=== PATIENT | male | born 1930 | race Caucasian/White ===

== ENCOUNTER 2018-09-13 12:10 | Inpatient (IN) | payer OTHER, BC ==
[2018-09-13 12:22] VITALS: BMI 24.7
--- NOTE | 2018-09-13 13:36 | PDOC ---
History of Present Illness - General Chief Complaint: Weakness Stated Complaint: WEAKNESS Time Seen by Provider: 09/13/18 13:36 History Source: Patient Exam Limitations: No Limitations - History of Present Illness Initial Comments: 09/13/18 16:13 87 year old male with PMH BPH s/p TURP, DVT presented to ED for multiple falls and feeling off balance for a week. Pt stated while walking today he felt his legs give out beneath him, bringing him to the ground on his knees. He denied head injury/LOC/vomiting. Pt reported he fell a week ago, does not remember if he had head injury. Pt denied chest pain, shortness of breath, abdominal pain, lightheadedness, nausea/vomiting/diarrhea, fever, weakness, numbness, tingling. Allergies: NKDA Past History - Past Medical History Allergies/Adverse Reactions: Allergies Allergy/AdvReac Type Severity Reaction Status Date / Time No Known Allergies Allergy Verified 09/13/18 12:22 Home Medications: Ambulatory Orders Aspirin [ASA -] 81 mg PO DAILY 08/14/14 Diazepam [Valium] 5 mg PO BID #20 tablet 08/17/14 Meloxicam 15 mg PO DAILY 09/13/18 Anemia: No Asthma: No Cancer: No Cardiac Disorders: Yes (arrhythmia) CVA: No COPD: No CHF: No Dementia: No Diabetes: No GI Disorders: No Disorders: Yes (turp) HTN: No Hypercholesterolemia: Yes Liver Disease: No Seizures: No Thyroid Disease: No Other medical history: poor mobility and balance - Surgical History Abdominal Surgery: No Appendectomy: No Cardiac Surgery: No Cholecystectomy: No Lung Surgery: No Neurologic Surgery: No Orthopedic Surgery: No - Suicide/Smoking/Psychosocial Hx Smoking Status: Yes Smoking History: Current every day smoker Have you smoked in the past 12 months: Yes Number of Cigarettes Smoked Daily: 6 Information on smoking cessation initiated: No Hx Alcohol Use: No Drug/Substance Use Hx: No Substance Use Type: None Hx Substance Use Treatment: No Review of Systems - Review of Systems Able to Perform ROS?: Yes Comments:: 09/13/18 16:12 General: admitted to generalized weakness. denied fever, chills. HEENT: denied sore throat, rhinorrhea, ear pain. Heart: denied chest pain, palpitations, syncope, diaphoresis. Respiratory: denied shortness of breath, cough, sputum production, hemoptysis. Abdomen: denied abdominal pain, nausea, vomiting, diarrhea, constipation, blood in stool. : denied dysuria, increased urinary frequency, hematuria, urinary incontinence , flank pain. Back: denied back pain. Musculoskeletal: denied joint pain, muscle pain, joint swelling. Neurological: admitted to disequilibrium. denied headache, dizziness, numbness, tingling, weakness. Skin: denied rash, laceration, abrasion. *Physical Exam - Vital Signs Last Vital Signs Temp Pulse Resp BP Pulse Ox 97.3 F L 79 17 118/60 99 09/13/18 12:19 09/13/18 12:19 09/13/18 12:19 09/13/18 12:19 09/13/18 12:19 - Physical Exam Comments: 09/13/18 16:13 Constitutional: Well-nourished, Well-developed, appearing stated age. HEENT: head is normocephalic, atraumatic. EOMI. PERRLA. no ramirez sign. no scalp hematoma. no raccoon eyes. no tenderness to palpation of bilateral facial bones. Neck: supple. Full ROM. no midline C-spine tenderness to palpation. Heart: regular rhythm. no murmurs, rubs or gallops. Lungs: wheezing to left lung. right lung clear to auscultation. speaking full sentences. Abdomen: soft, nontender. normal bowel sounds. no rebound, guarding, masses. Extremities: peripheral pulses intact. no lower extremity edema. Neurological: alert. oriented x3. CN2-12 intact. 5/5 strength all extremities. full sensation all extremities and bilateral face. no ataxia. gait not observed. Psych: awake, alert, oriented x3. follows commands. answers questions appropriately. ED Treatment Course - LABORATORY CBC & Chemistry Diagram: 09/13/18 13:46 09/13/18 13:46 Medical Decision Making - Medical Decision Making 09/13/18 14:45 87 year old male with above PMH presented to ED for multiple falls, disequilibrium. Initial Vital Signs Temp Pulse Resp BP Pulse Ox 97.3 F L 79 17 118/60 99 09/13/18 12:19 09/13/18 12:19 09/13/18 12:19 09/13/18 12:19 09/13/18 12:19 Afebrile. No tachycardia, no bradycardia. No tachypnea. No hypotension. No hypoxia on room air. EKG performed at 148: rate 61, regular rhythm, normal acis, normal intervals, no acute ST changes. CBC WBC 4.7 K/mm3 (4.0-10.0) 09/13/18 13:46 RBC 3.62 M/mm3 (4.00-5.60) L 09/13/18 13:46 Hgb 11.2 GM/dL (11.7-16.9) L 09/13/18 13:46 Hct 32.9 % (35.4-49) L D 09/13/18 13:46 MCV 90.9 fl (80-96) 09/13/18 13:46 MCH 30.8 pg (25.7-33.7) 09/13/18 13:46 MCHC 33.9 g/dl (32.0-35.9) 09/13/18 13:46 RDW 12.7 % (11.9-15.9) 09/13/18 13:46 Plt Count 195 K/MM3 (134-434) D 09/13/18 13:46 MPV 6.8 fl (7.5-11.1) L 09/13/18 13:46 Absolute Neuts (auto) 2.9 K/mm3 (1.5-8.0) 09/13/18 13:46 Neutrophils % 62.1 % (42.8-82.8) 09/13/18 13:46 Lymphocytes % 24.9 % (8-40) 09/13/18 13:46 Monocytes % 9.0 % (3.8-10.2) 09/13/18 13:46 Eosinophils % 3.4 % (0-4.5) 09/13/18 13:46 Basophils % 0.6 % (0-2.0) 09/13/18 13:46 Nucleated RBC % 0 % (0-0) 09/13/18 13:46 No leukocytosis. Mild normocytic anemia. No left shift. CMP Sodium 128 mmol/L (136-145) L 09/13/18 13:46 Potassium 4.3 mmol/L (3.5-5.1) 09/13/18 13:46 Chloride 95 mmol/L (98-107) L 09/13/18 13:46 Carbon Dioxide 27 mmol/L (21-32) 09/13/18 13:46 Anion Gap 7 MMOL/L (8-16) L 09/13/18 13:46 BUN 15.8 mg/dL (7-18) 09/13/18 13:46 Creatinine 1.1 mg/dL (0.55-1.3) 09/13/18 13:46 Est GFR (CKD-EPI)AfAm 69.59 09/13/18 13:46 Est GFR (CKD-EPI)NonAf 60.04 09/13/18 13:46 Random Glucose 85 mg/dL (74-106) 09/13/18 13:46 Calcium 8.3 mg/dL (8.5-10.1) L 09/13/18 13:46 Total Bilirubin 0.5 mg/dL (0.2-1) 09/13/18 13:46 AST 9 U/L (15-37) L 09/13/18 13:46 ALT 13 U/L (13-61) 09/13/18 13:46 Alkaline Phosphatase 55 U/L (45-117) 09/13/18 13:46 Troponin I < 0.02 ng/ml (0.00-0.05) 09/13/18 13:46 Total Protein 5.8 g/dl (6.4-8.2) L 09/13/18 13:46 Albumin 3.4 g/dl (3.4-5.0) 09/13/18 13:46 TSH 1.66 uIU/ml (0.358-3.74) 09/13/18 13:46 Hyponatremia. No BLANCO. No transaminitis. Troponin level undetectable. Labs ordered: urine sodium, UA, urine Cl, urine culture. Will consult renal when labs return. 09/13/18 15:49 CT head report: Clinical information given: history of multiple falls; dysequilibrium No intracranial hemorrhage is seen. There is no extra-axial fluid collection. No acute infarct is identified with the limitations of CT. Note is again made of focal white hypodensity within the left frontal centrum semiovale which may be on the basis of localized chronic microvascular changes versus chronic infarction. No obvious mass lesion is noted on noncontrast imaging. Involutional changes are noted with mild ventricular dilatation. The calvarium appears intact. Incidental note is made of a right ocular scleral band in place. IMPRESSION: No CT evidence of acute intracranial pathology. There has been no definite interval change in comparison to a prior CT study of 03/14/2016. Left frontal subcortical white matter hypodensity is again seen consistent with localized microvascular ischemic gliosis versus chronic infarction. Reported By: Uday Hoffman MD 09/13/18 1506 09/13/18 16:17 CXR report: Single AP view of the chest reveals a prominent heart, sclerotic unfolded aorta, possible hiatal hernia, fullness superior mediastinum, normal radha and well expanded lung gonzáles with questionable ill-defined density in the left mid lung field. Angles are sharp and the soft tissues are intact. There are degenerative changes. Correlation recommended. Follow-up suggested --CT chest 10/16/18 report: Sequential axial images were obtained from the thoracic inlet through the domes of the diaphragm following the administration of intravenous contrast material. Since a prior study dated 12/05/2014, a right upper lobe pulmonary mass within the posterior medial aspect of the lobe is reidentified. The mass has not significantly changed in size or appearance now measuring 2.4 x 1.7 x 1.7 cm. No new pulmonary masses, areas of acute consolidation or pleural effusions have developed. Minimal atelectatic changes are noted at the right lung base. Examination of the mediastinum demonstrates no evidence of mediastinal masses, fluid collections or significant lymphadenopathy. The heart is not enlarged. Evaluation of the upper abdomen demonstrates prominence of the left adrenal gland, unchanged. There is no evidence of acute abnormalities. There is no evidence of metastatic disease or acute bony abnormalities. IMPRESSION: 1. Stable right upper lobe mass since 2014. 2. No evidence of metastatic disease or acute pathology within the chest. Please see above discussion. 09/13/18 16:52 Urine Test Results Urine Color Yellow 09/13/18 15:07 Urine Appearance Clear 09/13/18 15:07 Urine pH 6.5 (5.0-8.0) D 09/13/18 15:07 Ur Specific [place] 1.004 (1.010-1.035) L 09/13/18 15:07 Urine Protein Negative (NEGATIVE) 09/13/18 15:07 Urine Glucose (UA) Negative (NEGATIVE) 09/13/18 15:07 Urine Ketones Negative (NEGATIVE) 09/13/18 15:07 Urine Blood Negative (NEGATIVE) 09/13/18 15:07 Urine Nitrite Negative (NEGATIVE) 09/13/18 15:07 Urine Bilirubin Negative (NEGATIVE) 09/13/18 15:07 Ur Leukocyte Esterase Negative (NEGATIVE) 09/13/18 15:07 Urine sodium low Urine osmol low Serum osmol low I spoke with Dr. Campbell about the patient, he recommended 100 cc/hour. Pt to be admitted for hyponatremia with multiple falls. 09/13/18 17:30 CT c-spine report: CT scan of the cervical spine without intravenous contrast Coronal and sagittal reconstruction images were obtained. Compared to prior CT scan of the cervical spine dated 03/14/2016 which There is mild retrolisthesis of C4 over C5, approximately 4 mm. There is also minimal anterolisthesis of C7 over T1. Otherwise, no gross fracture, subluxation or prevertebral soft tissue swelling is seen. No jumped facets are identified. Marked degenerative disc disease from C3 down to C7 level mainly at C4-C5 level. Bilateral uncovertebral hypertrophy moderately narrowing the foramina from C3-C4 down to C6-C7 level. Irregularity with sclerotic and cystic changes involving the dens and there is calcification of the left transverse process. Findings may be on the basis of arthritis considering the history. Visualized portion of the airway appears unremarkable. No gross enlarged lymph nodes are identified. Prominent density calcified plaques at the common carotid bifurcation, left larger than right. Correlate clinically for further evaluation. Lung windows at the thoracic inlet appear unremarkable. IMPRESSION: Grade 1 retrolisthesis of C4 over C5 and the grade 1 anterolisthesis of C7 over T1, likely degenerative. Otherwise, the alignment is satisfactory without gross evidence of a fracture or subluxation. No jumped facets are identified. No prevertebral swelling is present. Significant degenerative disc disease from C3 down to C7 level. Dense prominent calcified plaques at the common carotid bifurcation, left larger than right. Correlate clinically for further evaluation Reported By: Cristobal Humphrey MD 09/13/18 1711 *DC/Admit/Observation/Transfer Diagnosis at time of Disposition: Hyponatremia, Multiple falls - Discharge Dispostion Condition at time of disposition: Stable Decision to Admit order: Yes - Referrals Referrals: Jamal Goldberg MD [Primary Care Provider] - - Patient Instructions - Post Discharge Activity
[2018-09-13 14:03] LABS: BASO % 0.6 % (0-2.0); EOS % 3.4 % (0-4.5); HEMATOCRIT 32.9 % (35.4-49); HEMOGLOBIN 11.2 GM/dL (11.7-16.9); LYMPH % 24.9 % (8-40); MCH 30.8 pg (25.7-33.7); MCHC 33.9 g/dl (32.0-35.9); MEAN CELL VOLUME 90.9 fl (80-96); MEAN PLT VOLUME 6.8 fl (7.5-11.1); NEUT % 62.1 % (42.8-82.8); PLATELET COUNT 195 K/MM3 (134-434); RBC 3.62 M/mm3 (4.00-5.60); RDW 12.7 % (11.9-15.9); WHITE BLOOD COUNT 4.7 K/mm3 (4.0-10.0)
[2018-09-13 14:39] LABS: ALBUMIN 3.4 g/dl (3.4-5.0); ALK PHOS 55 U/L (45-117); ANION GAP 7 MMOL/L (8-16); BILIRUBIN,TOTAL 0.5 mg/dL (0.2-1); BLOOD UREA NITROGEN 15.8 mg/dL (7-18); CALCIUM 8.3 mg/dL (8.5-10.1); CHLORIDE 95 mmol/L (98-107); CO2 27 mmol/L (21-32); CREATININE 1.1 mg/dL (0.55-1.3); GLUCOSE,RANDOM 85 mg/dL (74-106); POTASSIUM 4.3 mmol/L (3.5-5.1); SGOT/AST 9 U/L (15-37); SGPT/ALT 13 U/L (13-61); SODIUM 128 mmol/L (136-145); TOT PROT 5.8 g/dl (6.4-8.2)
[2018-09-13 15:35] LABS: PH,URINE 6.5 (5.0-8.0); URINE APPEARANCE CLEAR; URINE BILIRUBIN NEGATIVE (NEGATIVE); URINE COLOR YELLOW; URINE GLUCOSE (UA) NEGATIVE (NEGATIVE); URINE KETONE NEGATIVE (NEGATIVE); URINE LEUK ESTERASE NEGATIVE (NEGATIVE); URINE NITRITE NEGATIVE (NEGATIVE); URINE PROTEIN NEGATIVE (NEGATIVE); URINE UROBILINOGEN 0.2 mg/dL (0.2-1.0)
[2018-09-13 16:27] LABS: OSMOLALITY,SERUM 264 mosm/kg (278-305)
[2018-09-13] MEDS ORDERED: SODIUM CHLORIDE 1,000 ML IV SCH ×2 (17:00→20:56)
--- NOTE | 2018-09-13 18:34 | PDOC ---
Documentation entered by Rudy Hillman SCRIBE, acting as scribe for Yulisa Agarwal MD. Yulisa Agarwal MD: This documentation has been prepared by the Rafy long Nirvannie, SCRIBE, under my direction and personally reviewed by me in its entirety. I confirm that the documentation accurately reflects all work, treatment, procedures, and medical decision making performed by me. Attending Attestation - Resident Resident Name: JanieCony - ED Attending Attestation I have performed the following: I have examined & evaluated the patient, The case was reviewed & discussed with the resident, I agree w/resident's findings & plan - HPI HPI: 09/13/18 14:41 The patient is a year old male, with a significant past medical history of HLD, cataracts, cardiac arrhythmia, BPH (s/p TURP), who presents to the emergency department with, 1 week of weakness and frequent falls. Patient notes his last fall he dropped to his knees, however, unaware of previous falls with head injury. He denies any recent chest pain or shortness of breath. Allergies: NKDA Primary Care Physician: Dr. Goldberg - Physicial Exam PE: 09/13/18 13:58 GENERAL: Awake, alert, and fully oriented, in no acute distress HEAD: No signs of trauma EYES: PERRLA, EOMI, sclera anicteric, conjunctiva clear ENT: Auricles normal inspection, hearing grossly normal, nares patent, oropharynx clear without exudates. Moist mucosa NECK: Normal ROM, supple, no lymphadenopathy, JVD, or masses LUNGS: Breath sounds equal, clear to auscultation bilaterally. No wheezes, and no crackles HEART: Regular rate and rhythm, normal S1 and S2, no murmurs, rubs or gallops ABDOMEN: Soft, nontender, normoactive bowel sounds. No guarding, no rebound. No masses EXTREMITIES: Normal range of motion, no edema. No clubbing or cyanosis. No cords, erythema, or tenderness NEUROLOGICAL: Cranial nerves II through XII grossly intact. Normal speech, normal gait. Motor and sensation intact SKIN: Warm, Dry, normal turgor, no rashes or lesions noted
--- NOTE | 2018-09-13 18:43 | HP ---
CHIEF COMPLAINT: collapsed to floor, generalized weakness PCP:Dr. Goldberg HISTORY OF PRESENT ILLNESS: Mr. Weinberg is an 87 year old male with history of BPH with TURP, no prior cardiac history who reports he has collapsed to the floor today. He denies other falls this month but has had multiple falls in the past. He denied loss of consciousness or hitting his head. He reports he has had prior head trauma in his earlier years and reports losing 30 pounds in the past 3-4 years and relates this to not eating adequately. Upon evaluation in the ER CT scan of head revealed microvascular ischemic gliosis versus chronic infarction. CT scan of spine with degenerative disc disease. lab findings notable for sodium 129, and UA with low urine osmolarity, low random sodium and chloride. Renal has been consulted in the ER. He was started in IV fluids NS at 100 cc/hr. He is being admitted for further medical evaluation/treatment. Recent Travel:denies PAST MEDICAL HISTORY: BPH TURP PAST SURGICAL HISTORY: TURP Social History: Smoking:ex smoker, quit for 43 years but resumed to smoking 3-4 years ago, smokes 6-7 cigarettes a day Alcohol:denies Drugs: denies Family History: Allergies No Known Allergies Allergy (Verified 09/13/18 12:22) HOME MEDICATIONS: Home Medications Medication Instructions Recorded Aspirin [ASA -] 81 mg PO DAILY 08/14/14 Diazepam [Valium] 5 mg PO BID #20 tablet 08/17/14 Meloxicam 15 mg PO DAILY 09/13/18 REVIEW OF SYSTEMS CONSTITUTIONAL: Absent: fever, chills, diaphoresis, generalized weakness, malaise, loss of appetite, weight change HEENT: Absent: rhinorrhea, nasal congestion, throat pain, throat swelling, difficulty swallowing, mouth swelling, ear pain, eye pain, visual changes CARDIOVASCULAR: Absent: chest pain, syncope, palpitations, irregular heart rate, lightheadedness , peripheral edema RESPIRATORY: Absent: cough, shortness of breath, dyspnea with exertion, orthopnea, wheezing, stridor, hemoptysis GASTROINTESTINAL: Absent: abdominal pain, abdominal distension, nausea, vomiting, diarrhea, constipation, melena, hematochezia GENITOURINARY: Absent: dysuria, frequency, urgency, hesitancy, hematuria, flank pain, genital pain MUSCULOSKELETAL: Absent: myalgia, arthralgia, joint swelling, back pain, neck pain SKIN: Absent: rash, itching, pallor HEMATOLOGIC/IMMUNOLOGIC: Absent: easy bleeding, easy bruising, lymphadenopathy, frequent infections ENDOCRINE: Absent: unexplained weight gain, unexplained weight loss, heat intolerance, cold intolerance NEUROLOGIC: Absent: headache, focal weakness or paresthesias, dizziness, unsteady gait, seizure, mental status changes, bladder or bowel incontinence PSYCHIATRIC: Absent: anxiety, depression, suicidal or homicidal ideation, hallucinations. PHYSICAL EXAMINATION Vital Signs - 24 hr 09/13/18 09/13/18 12:19 17:05 Temperature 97.3 F L 97.8 F Pulse Rate 79 Pulse Rate [ 68 Left Radial] Respiratory 17 19 Rate Blood Pressure 118/60 Blood Pressure 149/62 [Right Arm] O2 Sat by Pulse 99 98 Oximetry (%) GENERAL: awake, alert, and fully oriented HEAD:no head trauma EYES: pupils equal, round and reactive to light EARS, NOSE, THROAT: ears normal, nares patent NECK: neck supple no JVD LUNGS: breath sounds clear to auscultation bilaterally no wheezes no crackles no accessory muscle use HEART: regular rate and rhythm normal S1 and S2 without murmur ABDOMEN: soft, nontender, not distended, normoactive bowel sounds MUSCULOSKELETAL: normal range of motion UPPER EXTREMITIES: well-perfused LOWER EXTREMITIES: well-perfused no pitting edema no cyanosis NEUROLOGICAL: normal speech no neuro focal deficits PSYCHIATRIC: cooperative good eye contact appropriate mood SKIN: warm dry normal turgor no rashes or lesions noted normal capillary refill Laboratory Results - last 24 hr 09/13/18 09/13/18 09/13/18 13:46 13:46 15:07 WBC 4.7 RBC 3.62 L Hgb 11.2 L Hct 32.9 L D MCV 90.9 MCH 30.8 MCHC 33.9 RDW 12.7 Plt Count 195 D MPV 6.8 L Absolute Neuts (auto) 2.9 Neutrophils % 62.1 Lymphocytes % 24.9 Monocytes % 9.0 Eosinophils % 3.4 Basophils % 0.6 Nucleated RBC % 0 Sodium 128 L Potassium 4.3 Chloride 95 L Carbon Dioxide 27 Anion Gap 7 L BUN 15.8 Creatinine 1.1 Est GFR (CKD-EPI)AfAm 69.59 Est GFR (CKD-EPI)NonAf 60.04 Random Glucose 85 Serum Osmolality 264 L Calcium 8.3 L Total Bilirubin 0.5 AST 9 L ALT 13 Alkaline Phosphatase 55 Troponin I < 0.02 Total Protein 5.8 L Albumin 3.4 TSH 1.66 Urine Color Yellow Urine Appearance Clear Urine pH 6.5 D Ur Specific [place] 1.004 L Urine Protein Negative Urine Glucose (UA) Negative Urine Ketones Negative Urine Blood Negative Urine Nitrite Negative Urine Bilirubin Negative Urine Urobilinogen 0.2 Ur Leukocyte Esterase Negative Urine Osmolality Ur Random Sodium Ur Random Chloride 09/13/18 09/13/18 09/13/18 15:07 15:20 15:20 WBC RBC Hgb Hct MCV MCH MCHC RDW Plt Count MPV Absolute Neuts (auto) Neutrophils % Lymphocytes % Monocytes % Eosinophils % Basophils % Nucleated RBC % Sodium Potassium Chloride Carbon Dioxide Anion Gap BUN Creatinine Est GFR (CKD-EPI)AfAm Est GFR (CKD-EPI)NonAf Random Glucose Serum Osmolality Calcium Total Bilirubin AST ALT Alkaline Phosphatase Troponin I Total Protein Albumin TSH Urine Color Urine Appearance Urine pH Ur Specific [place] Urine Protein Urine Glucose (UA) Urine Ketones Urine Blood Urine Nitrite Urine Bilirubin Urine Urobilinogen Ur Leukocyte Esterase Urine Osmolality 138 L Ur Random Sodium 25 L Ur Random Chloride 18 L ASSESSMENT/PLAN: This is an 87 year old male with history of BPH with TURP and no prior cardiac history who reports he has collapsed to the floor today.He denied loss of consciousness or hitting his head. He was found to have hyponatremia. UA with low sodium urine osmolarity and low random sodium and chloride. Renal has been consulted. He was started in IV fluids NS at 100 cc/hr. He is being admitted for further medical evaluation/treatment. #1 Hyponatremia UA with low sodium urine osmolarity and low random sodium and chloride. Creatinine is normal. IVF NS at 100 cc/hr started - Renal Dr. Campbell consulted #2 Fall in setting of hyponatremia CT scan of head with no acute intracranial findings. Troponin normal. - continue with IV fluids NS at 100 cc/hr - physical therapy consulted #3 Weight Loss CXR with density seen in the left mid lung field. Patient is an active smoker - Will check CT scan of chest with contrast to exclude lung mass FEN IVF NS @ 100cc/hr, regular diet, monitor electrolytes DVT TEDS, SCDS, lovenox 40 mg once daily - Visit type - Emergency Visit Emergency Visit: Yes ED Registration Date: 09/13/18 Care time: The patient presented to the Emergency Department on the above date and was hospitalized for further evaluation of their emergent condition. - New Patient This patient is new to me today: Yes Date on this admission: 09/13/18 - Critical Care Critical Care patient: No
[2018-09-13] MEDS: ENOXAPARIN NA (PORCINE) 40 MG/0.4 ML DISP.SYRIN SQ SCH (18:50)
--- NOTE | 2018-09-13 20:50 | CONSULT ---
Consult Consult Specialty:: Nephrology Reason for Consultation:: hyponatremia - History of Present Illness Chief Complaint: dizziness History of Present Illness: Pt is an 87 year old male with pmhx of bph, TURP, DVT, vertigo, and anxiety who presents to the ER with dizziness for the last week. He was found to be hyponatremic and I was called to evaluate him. He says that he has had dizziness for the last 3 years. 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 He also says that he has a 40 pound weight loss over the last 3 years. He says he does not eat much and does not have much appetite. He denies dysuria or hematuria. - History Source History Provided By: Patient, Medical Record - Past Medical History Cardio/Vascular: Yes: Hyperlipdemia Renal/: Yes: BPH Psych: Yes: Anxiety, Panic Musculoskeletal: Yes: Chronic low back pain - Past Surgical History Past Surgical History: Yes: TURP - Alcohol/Substance Use Hx Alcohol Use: No Number of Drinks Daily: 2 - Smoking History Smoking history: Current every day smoker Have you smoked in the past 12 months: Yes Aproximately how many cigarettes per day: 6 Home Medications - Allergies Allergies/Adverse Reactions: Allergies Allergy/AdvReac Type Severity Reaction Status Date / Time No Known Allergies Allergy Verified 09/13/18 12:22 - Home Medications Home Medications: Ambulatory Orders Aspirin [ASA -] 81 mg PO DAILY 08/14/14 Diazepam [Valium] 5 mg PO BID #20 tablet 08/17/14 Meloxicam 15 mg PO DAILY 09/13/18 Family Disease History - Family Disease History Family History: Denies Review of Systems - Review of Systems Constitutional: reports: Loss of Appetite, Malaise, Unintentional Wgt. Loss Eyes: reports: No Symptoms HENT: reports: No Symptoms Neck: reports: No Symptoms Cardiovascular: reports: No Symptoms Respiratory: reports: No Symptoms Gastrointestinal: reports: No Symptoms Genitourinary: reports: No Symptoms Musculoskeletal: reports: Joint Pain Integumentary: reports: No Symptoms Neurological: reports: Dizziness, Unsteady Gait Endocrine: reports: No Symptoms Hematology/Lymphatic: reports: No Symptoms Psychiatric: reports: No Symptoms Physical Exam Vital Signs: Vital Signs Temperature 97.8 F 09/13/18 20:00 Pulse Rate 84 09/13/18 20:00 Respiratory Rate 21 H 06/10/19 20:00 Blood Pressure 148/89 09/13/18 20:00 O2 Sat by Pulse Oximetry (%) 98 09/13/18 20:00 Constitutional: Yes: Calm Eyes: Yes: Conjunctiva Clear HENT: Yes: Atraumatic Neck: Yes: Supple Cardiovascular: Yes: S1, S2 Respiratory: Yes: CTA Bilaterally Gastrointestinal: Yes: Soft Renal/: Yes: WNL Musculoskeletal: Yes: WNL Extremities: Yes: WNL Edema: No Neurological: Yes: Oriented Psychiatric: Yes: Oriented Labs: CBC, BMP 09/13/18 13:46 09/13/18 13:46 Laboratory Tests 09/13/18 09/13/18 09/13/18 13:46 13:46 15:07 WBC 4.7 Hgb 11.2 L Plt Count 195 D Sodium 128 L Potassium 4.3 Chloride 95 L Creatinine 1.1 Est GFR (CKD-EPI)AfAm 69.59 Serum Osmolality 264 L Calcium 8.3 L Ur Specific [place] 1.004 L Urine Osmolality Ur Random Sodium Ur Random Chloride 09/13/18 09/13/18 09/13/18 15:07 15:20 15:20 WBC Hgb Plt Count Sodium Potassium Chloride Creatinine Est GFR (CKD-EPI)AfAm Serum Osmolality Calcium Ur Specific [place] Urine Osmolality 138 L Ur Random Sodium 25 L Ur Random Chloride 18 L Imaging - Results Chest X-ray: Report Reviewed (left mid lung density) Problem List - Problems (1) Hyponatremia Code(s): E87.1 - HYPO-OSMOLALITY AND HYPONATREMIA (2) Multiple falls Code(s): R29.6 - REPEATED FALLS (3) Anxiety Code(s): F41.9 - ANXIETY DISORDER, UNSPECIFIED Assessment/Plan Current Medications Generic Name Dose Route Start Last Admin Trade Name Freq PRN Reason Stop Dose Admin Aspirin 81 mg 09/14/18 10:00 Asa - PO DAILY [facility] Enoxaparin Sodium 40 mg 09/13/18 18:30 09/13/18 18:50 Lovenox - SQ 40 mg DAILY [facility] Administration Sodium Chloride 1,000 mls @ 100 mls/hr 09/13/18 17:00 09/13/18 18:25 Normal Saline - IV 100 mls/hr ASDIR [facility] Administration Non-Formulary Medication 15 mg 09/14/18 10:00 Meloxicam [Meloxicam] PO DAILY [facility] Impression 1. hyponatremia 2. vertigo/dizziness 3. unsteady gait 4. falls 5. anxiety 6. bph 7. lung mass 8. arthritis 9. weight loss Plan - urine sodium and urine osm are low - agree with saline - monitor sodium level - restrict free water intake and encourage PO intake - may need further imaging to define lung mass on cxr - urine studies are not consistent with siadh - discussed with family - diazepam may contribute to dizziness Dr Campbell
--- NOTE | 2018-09-13 23:45 | CONSULT ---
Consult Consult Specialty:: endocrine Referred by:: hospitalist Reason for Consultation:: hyponatremia - History of Present Illness Chief Complaint: weakness and fell History of Present Illness: 87 year old male with history of prior falls,ballance and gait disturbance,dvt , BPH with TURP, no prior cardiac history who reports he has collapsed to the floor today. . He denied loss of consciousness or hitting his head. He reports he has had prior head trauma in his earlier years and reports losing 30 pounds in the past 3-4 years and relates this to not eating adequately. he admitts to drinking fluids but not have good appetite,denies nausea vomiting or diarhea. - Past Medical History Cardio/Vascular: Yes: Hyperlipdemia Renal/: Yes: BPH Psych: Yes: Anxiety, Panic Musculoskeletal: Yes: Chronic low back pain - Past Surgical History Past Surgical History: Yes: TURP - Alcohol/Substance Use Hx Alcohol Use: No Number of Drinks Daily: 2 - Smoking History Smoking history: Current every day smoker Have you smoked in the past 12 months: Yes Aproximately how many cigarettes per day: 6 Home Medications - Allergies Allergies/Adverse Reactions: Allergies Allergy/AdvReac Type Severity Reaction Status Date / Time No Known Allergies Allergy Verified 09/13/18 12:22 - Home Medications Home Medications: Ambulatory Orders Aspirin [ASA -] 81 mg PO DAILY 08/14/14 Diazepam [Valium] 5 mg PO BID #20 tablet 08/17/14 Meloxicam 15 mg PO DAILY 09/13/18 Review of Systems - Review of Systems Constitutional: reports: Lethargy, Loss of Appetite, Unintentional Wgt. Loss Eyes: reports: No Symptoms HENT: reports: Hearing Loss Neck: reports: Decreased ROM Cardiovascular: reports: No Symptoms Respiratory: reports: No Symptoms Gastrointestinal: reports: Constipation Genitourinary: reports: No Symptoms Breasts: reports: No Symptoms Reported Musculoskeletal: reports: Back Pain, Extremity Pain, Joint Swelling, Muscle Pain , Muscle Weakness Neurological: reports: Numbness, Weakness Endocrine: reports: Unexplained Weight Loss Psychiatric: reports: Anxiety, Depression Physical Exam Vital Signs: Vital Signs Temperature 97.8 F 09/13/18 20:00 Pulse Rate 84 09/13/18 20:00 Respiratory Rate 21 H 09/13/18 20:00 Blood Pressure 148/89 09/13/18 20:00 O2 Sat by Pulse Oximetry (%) 98 09/13/18 20:00 Constitutional: Yes: Anxious Eyes: Yes: EOM Intact HENT: Yes: Normocephalic Neck: Yes: Trachea Midline Cardiovascular: Yes: Regular Rate and Rhythm Respiratory: Yes: CTA Bilaterally Gastrointestinal: Yes: Normal Bowel Sounds ...Rectal Exam: Yes: Deferred Renal/: Yes: WNL Breast(s): Yes: WNL Musculoskeletal: Yes: WNL, Muscle Pain, Muscle Weakness Extremities: Yes: WNL Edema: No Neurological: Yes: Alert, Oriented Labs: CBC, BMP 09/13/18 13:46 09/13/18 13:46 Problem List - Problems (1) Hyponatremia Code(s): E87.1 - HYPO-OSMOLALITY AND HYPONATREMIA (2) Multiple falls Code(s): R29.6 - REPEATED FALLS (3) Anxiety Code(s): F41.9 - ANXIETY DISORDER, UNSPECIFIED (4) Arrhythmia Code(s): I49.9 - CARDIAC ARRHYTHMIA, UNSPECIFIED (5) Atypical chest pain Code(s): R07.89 - OTHER CHEST PAIN (6) Depression Code(s): F32.9 - MAJOR DEPRESSIVE DISORDER, SINGLE EPISODE, UNSPECIFIED (7) Palpitation Code(s): R00.2 - PALPITATIONS (8) Partial small bowel obstruction Code(s): K56.69 - OTHER INTESTINAL OBSTRUCTION * DO NOT USE * Assessment/Plan Current Active Problems Hyponatremia (Acute) Multiple falls (Acute) depression/anxiety lung mass/ smoker Abnormal Lab Results 09/13/18 09/13/18 09/13/18 13:46 13:46 15:07 RBC 3.62 L Hgb 11.2 L Hct 32.9 L D MPV 6.8 L Sodium 128 L Chloride 95 L Anion Gap 7 L Serum Osmolality 264 L Calcium 8.3 L AST 9 L Total Protein 5.8 L Ur Specific [place] 1.004 L Urine Osmolality Ur Random Sodium Ur Random Chloride 09/13/18 09/13/18 09/13/18 15:07 15:20 15:20 RBC Hgb Hct MPV Sodium Chloride Anion Gap Serum Osmolality Calcium AST Total Protein Ur Specific [place] Urine Osmolality 138 L Ur Random Sodium 25 L Ur Random Chloride 18 L plan: check tsh free t4 fluid restrict psychiatry consult anxiety depression
[2018-09-14 04:48] LABS: URINE APPEARANCE CLEAR; URINE BILIRUBIN NEGATIVE (NEGATIVE); URINE COLOR YELLOW; URINE GLUCOSE (UA) NEGATIVE (NEGATIVE); URINE KETONE NEGATIVE (NEGATIVE); URINE LEUK ESTERASE NEGATIVE (NEGATIVE); URINE NITRITE NEGATIVE (NEGATIVE); URINE PROTEIN NEGATIVE (NEGATIVE); URINE UROBILINOGEN 0.2 mg/dL (0.2-1.0)
[2018-09-14 05:33] LABS: COCAINE, UR NEGATIVE ng/ml (CUTOFF=300); METHADONE, UR NEGATIVE ng/ml (CUTOFF=300); OPIATES, URI NEGATIVE ng/ml (CUTOFF=300); PHENCYCLIDINE,URINE NEGATIVE ng/ml (CUTOFF=25); URINE AMPHETAMINES NEGATIVE ng/ml (CUTOFF=500); URINE BARBITURATES NEGATIVE ng/ml (CUTOFF=200)
[2018-09-14 06:01] LABS: URINE BENZODIAZEPINES POSITIVE ng/ml (CUTOFF=200)
[2018-09-14 08:08] LABS: CALCIUM 8.5 mg/dL (8.5-10.1); MAGNESIUM 2.5 mg/dL (1.8-2.4); POTASSIUM 4.1 mmol/L (3.5-5.1)
[2018-09-14 08:39] LABS: HEMATOCRIT 35.3 % (35.4-49); HEMOGLOBIN 12.2 GM/dL (11.7-16.9); MCH 31.3 pg (25.7-33.7); MCHC 34.5 g/dl (32.0-35.9); MEAN CELL VOLUME 90.9 fl (80-96); MEAN PLT VOLUME 7.4 fl (7.5-11.1); PLATELET COUNT 211 K/MM3 (134-434); RBC 3.89 M/mm3 (4.00-5.60); WHITE BLOOD COUNT 5.7 K/mm3 (4.0-10.0)
[2018-09-14] MEDS ORDERED: PATIENT'S OWN MEDICATION (NON-FORMULARY) (Meloxicam [Meloxicam] 15 MG) PO SCH (10:00)
[2018-09-14] MEDS: ENOXAPARIN NA (PORCINE) 40 MG/0.4 ML DISP.SYRIN SQ SCH (10:49)
[2018-09-14] MEDS: ASPIRIN 81 MG CHEWABLE TABLETS PO SCH (10:49)
--- NOTE | 2018-09-14 11:50 | CON.PULM ---
Consult Consult Specialty:: PULM/CCM Referred by:: MERLIN Reason for Consultation:: Abnormal CT Chest - History of Present Illness Chief Complaint: Fall History of Present Illness: 87 M, BPH, S/P TURP, known right lung mass that was biopsied at [facility] about 7 years ago. The tissue was reported as benign and it was recommended that no further was required. He does not have any respiratory symptoms such as SOB, XIAO, chronic cough, hemoptysis, etc. He was admitted via the ER due to fall and collapse to the floor today. Head CT: microvascular ischemic gliosis versus chronic infarction Labs notable for Hyponatremia: 129 CT imaging from [facility] from 2012 reveals this mass. - History Source History Provided By: Patient Limitations to Obtaining History: No Limitations - Past Medical History Cardio/Vascular: Yes: Hyperlipdemia Pulmonary: No: Asthma, Bronchitis, Cancer, COPD, O2 Dependent, Pneumonia, Previously Intubated, Pulmonary Embolus, Pulmonary Fibrosis, Sleep Apnea Renal/: Yes: BPH Psych: Yes: Anxiety, Panic Musculoskeletal: Yes: Chronic low back pain - Past Surgical History Past Surgical History: Yes: TURP - Alcohol/Substance Use Hx Alcohol Use: No Number of Drinks Daily: 2 - Smoking History Smoking history: Current every day smoker Have you smoked in the past 12 months: Yes Aproximately how many cigarettes per day: 6 Home Medications - Allergies Allergies/Adverse Reactions: Allergies Allergy/AdvReac Type Severity Reaction Status Date / Time No Known Allergies Allergy Verified 09/13/18 12:22 - Home Medications Home Medications: Ambulatory Orders Aspirin [ASA -] 81 mg PO DAILY 08/14/14 Diazepam [Valium] 5 mg PO BID #20 tablet 08/17/14 Meloxicam 15 mg PO DAILY 09/13/18 Physical Exam Vital Sings: Vital Signs Temperature 97.8 F 09/14/18 04:00 Pulse Rate 68 09/14/18 04:00 Respiratory Rate 16 09/14/18 04:00 Blood Pressure 131/77 09/14/18 04:00 O2 Sat by Pulse Oximetry (%) 98 09/14/18 04:00 Constitutional: Yes: No Distress, Calm, Thin Eyes: Yes: Conjunctiva Clear, EOM Intact HENT: Yes: Atraumatic, Normocephalic Neck: Yes: Supple, Trachea Midline Cardiovascular: Yes: Regular Rate and Rhythm Respiratory: Yes: CTA Bilaterally. No: Accessory Muscle Use, Rales, Rhonchi, SOB, SOB on Exertion, Stridor, Tachypnea, Wheezes ...Inspection: Yes: WNL ...Clubbing: No Gastrointestinal: Yes: Normal Bowel Sounds, Soft Musculoskeletal: Yes: WNL Extremities: Yes: WNL Edema: No Peripheral Pulses WNL: Yes Integumentary: Yes: WNL Neurological: Yes: WNL, Alert, Oriented ...Motor Strength: WNL Psychiatric: Yes: WNL, Alert, Oriented Labs: CBC, BMP 09/14/18 06:55 09/14/18 06:55 Imaging - Results Chest X-ray: Report Reviewed, Image Reviewed Cat Scan: Report Reviewed, Image Reviewed Problem List - Problems (1) Lung mass Code(s): R91.8 - OTHER NONSPECIFIC ABNORMAL FINDING OF LUNG FIELD (2) Hyponatremia Code(s): E87.1 - HYPO-OSMOLALITY AND HYPONATREMIA (3) Multiple falls Code(s): R29.6 - REPEATED FALLS (4) Anxiety Code(s): F41.9 - ANXIETY DISORDER, UNSPECIFIED Assessment/Plan Patient does not require additional testing as he had a tissue biopsy at [facility] No smoking Work up for falls: Patient and his daughter are requesting a Neuro evaluation VTE prophylaxis Fall precautions Thank you. Dr Chamberlain
--- NOTE | 2018-09-14 12:03 | PN ---
Progress Note, Physician Chief Complaint: Generalized weakness Fall History of Present Illness: Others' Prescriptions Patient Name: Chris Weinberg Date: 1930 Address: [address] [place] [address] Sex: Male Rx Written Rx Dispensed Drug Quantity Days Supply Prescriber Name 07/06/2018 07/11/2018 diazepam 5 mg tablet 60 30 Jamal Goldberg MD 02/10/2018 02/14/2018 diazepam 5 mg tablet 60 30 Jamal Goldberg MD 12/02/2017 12/04/2017 diazepam 5 mg tablet 60 30 Jamal Goldberg MD 09/16/2017 09/17/2017 diazepam 5 mg tablet 60 30 Jamal Goldberg MD Feels anxious - Current Medication List Current Medications: Active Medications Aspirin (Asa -) 81 mg PO DAILY [facility] Last Admin: 09/14/18 10:49 Dose: 81 mg Enoxaparin Sodium (Lovenox -) 40 mg SQ DAILY [facility] Last Admin: 09/14/18 10:49 Dose: 40 mg Sodium Chloride (Normal Saline -) 1,000 mls @ 75 mls/hr IV ASDIR [facility] Non-Formulary Medication (Meloxicam [Meloxicam]) 15 mg PO DAILY [facility] - Objective Vital Signs: Vital Signs Temperature 97.8 F 09/14/18 04:00 Pulse Rate 68 09/14/18 04:00 Respiratory Rate 16 09/14/18 04:00 Blood Pressure 131/77 09/14/18 04:00 O2 Sat by Pulse Oximetry (%) 98 09/14/18 04:00 Constitutional: Yes: Well Nourished, No Distress, Calm Cardiovascular: Yes: Regular Rate and Rhythm Respiratory: Yes: Regular Genitourinary: Yes: WNL Musculoskeletal: Yes: WNL Extremities: Yes: WNL Edema: No Peripheral Pulses WNL: Yes Neurological: Yes: Alert, Pre-Existing Deficit Psychiatric: Yes: Alert Labs: CBC, BMP 09/14/18 06:55 09/14/18 06:55 Problem List - Problems (1) Hyponatremia Assessment/Plan: -nephrology on board -NaCl tabs -gradually improving -monitor trend Code(s): E87.1 - HYPO-OSMOLALITY AND HYPONATREMIA (2) Lung mass Assessment/Plan: -Had biopsy at [facility] in the past- as per daughter was considered as benign mass Code(s): R91.8 - OTHER NONSPECIFIC ABNORMAL FINDING OF LUNG FIELD (3) Multiple falls Assessment/Plan: -Neurology consult -Check B12 -Physical therapy -Avoid sedatives Code(s): R29.6 - REPEATED FALLS (4) Anxiety Assessment/Plan: -Psych consult -D/C valium-High risk as per Beers criteria -As per pt he has been on it for over 30 years -HCS history states otherwise -As per daughter- she thinks her brother is stealing the benzodiazepines because of his history of drug abuse Code(s): F41.9 - ANXIETY DISORDER, UNSPECIFIED Assessment/Plan see problem list
--- NOTE | 2018-09-14 12:47 | EKG ---
Test Reason : Blood Pressure : / mmHG Vent. Rate : 061 BPM Atrial Rate : 061 BPM P-R Int : 192 ms QRS Dur : 084 ms QT Int : 428 ms P-R-T Axes : 005 036 036 degrees QTc Int : 430 ms NORMAL SINUS RHYTHM NORMAL ECG WHEN COMPARED WITH ECG OF 14-AUG-2014 20:43, PREMATURE VENTRICULAR COMPLEXES ARE NO LONGER PRESENT Confirmed by Garret Fountain MD ([id number]) on 09/14/2018 12:47:14 PM Referred By: Confirmed By:Garret Fountain MD
[2018-09-14] MEDS: TAMSULOSIN HCL 0.4 MG CAP PO SCH (13:18)
[2018-09-14] MEDS: THIAMINE HCL 200 MG/2 ML VIAL IVPB SCH ×2 (13:30→21:49)
--- NOTE | 2018-09-14 14:36 | PN ---
Progress Note, Physician History of Present Illness: Pt seen and examined at bedside. He is awake and alert. He denies shortness of breath. He is asking to go home. - Current Medication List Current Medications: Active Medications Aspirin (Asa -) 81 mg PO DAILY [facility] Last Admin: 09/14/18 10:49 Dose: 81 mg Enoxaparin Sodium (Lovenox -) 40 mg SQ DAILY [facility] Last Admin: 09/14/18 10:49 Dose: 40 mg Non-Formulary Medication (Meloxicam [Meloxicam]) 15 mg PO DAILY [facility] Tamsulosin HCl (Flomax -) 0.4 mg PO DAILY@0830 [facility] Last Admin: 09/14/18 13:18 Dose: 0.4 mg Thiamine HCl (Vitamin B1 Injection -) 250 mg IVPB TID [facility] Stop: 09/17/18 13:59 Last Admin: 09/14/18 13:30 Dose: Not Given - Objective Vital Signs: Vital Signs Temperature 98.9 F 09/14/18 12:21 Pulse Rate 73 09/14/18 12:21 Respiratory Rate 20 09/14/18 12:21 Blood Pressure 124/66 09/14/18 12:21 O2 Sat by Pulse Oximetry (%) 96 09/14/18 12:21 Constitutional: Yes: Calm Eyes: Yes: Conjunctiva Clear HENT: Yes: Atraumatic Neck: Yes: Supple Cardiovascular: Yes: S1, S2 Respiratory: Yes: CTA Bilaterally Gastrointestinal: Yes: Normal Bowel Sounds, Soft Genitourinary: Yes: WNL Musculoskeletal: Yes: WNL Edema: No Neurological: Yes: Oriented Psychiatric: Yes: Oriented Labs: CBC, BMP 09/14/18 06:55 09/14/18 06:55 Problem List - Problems (1) Hyponatremia Code(s): E87.1 - HYPO-OSMOLALITY AND HYPONATREMIA (2) Multiple falls Code(s): R29.6 - REPEATED FALLS (3) Anxiety Code(s): F41.9 - ANXIETY DISORDER, UNSPECIFIED Assessment/Plan Current Medications Generic Name Dose Route Start Last Admin Trade Name Freq PRN Reason Stop Dose Admin Aspirin 81 mg 09/14/18 10:00 09/14/18 10:49 Asa - PO 81 mg DAILY [facility] Administration Enoxaparin Sodium 40 mg 09/13/18 18:30 09/14/18 10:49 Lovenox - SQ 40 mg DAILY [facility] Administration Non-Formulary Medication 15 mg 09/14/18 10:00 Meloxicam [Meloxicam] PO DAILY [facility] Tamsulosin HCl 0.4 mg 09/14/18 12:02 09/14/18 13:18 Flomax - PO 0.4 mg DAILY@0830 [facility] Administration Thiamine HCl 250 mg 09/14/18 14:00 09/14/18 13:30 Vitamin B1 Injection - IVPB 09/17/18 13:59 Not Given TID [facility] Impression 1. hyponatremia 2. vertigo/dizziness 3. unsteady gait 4. falls 5. anxiety 6. bph 7. lung mass 8. arthritis 9. weight loss Plan - sodium has normalized - encourage PO intake - pulm aware of lung findings - discussed diet with pt - of pt still does not eat much can give sodium chloride tabs 1 gram per day. Will not order at this time as his sodium improved and he says that he will start to eat more Dr Campbell
--- NOTE | 2018-09-14 15:38 | ECHO ---
Version: 1 Name: HUMAIRA GOODMAN Exam: Adult Echocardiogram Study Date: 09/14/2018, 2:08 PM Age: 87 Years MMode/2D Measurements & Calculations IVSd: 0.98 cm LVIDs: 2.41 cm LVIDd: 3.0 cm LVPWd: 1.37 cm ACS: 1.68 cm LVOT diam: 1.79 cm Doppler Measurements & Calculations MV E max jose: 71.1 cm/sec Med E/e': 9.2 MV A max jose: 93.0 cm/sec Med Peak E' Jose: 7.7 cm/sec MV E/A: 0.76 Lat E/e': 10.9 Lat Peak E' Jose: 6.5 cm/sec MR max P.9 mmHg Ao max P.8 mmHg MONICA(I,D): 1.52 cm Ao mean P.7 mmHg LV V1 mean: 61.6 cm/sec Ao V2 max: 140.0 cm/sec LV V1 mean P.64 mmHg Procedure A complete two-dimensional transthoracic echocardiogram was performed (2D, M-mode, Doppler and color flow Doppler). Left Ventricle The left ventricular size, thickness and function are normal. Ejection Fraction = 55%. Grade I diast olic dysfunction, (abnormal relaxation pattern). Right Ventricle The right ventricle is normal in size and function. Atria Normal left and right atrial size and function. Mitral Valve The mitral valve is normal in structure and function. There is mild mitral regurgitation. Tricuspid Valve The tricuspid valve is normal in structure and function. There is mild tricuspid regurgitation. Aortic Valve The aortic valve is normal in structure and function. No hemodynamically significant valvular aortic stenosis. Pulmonic Valve The pulmonic valve is not well visualized. Great Vessels The aortic root is normal size. Pericardium/Pleura There is no pericardial effusion. Summary Statements The left ventricular size, thickness and function are normal The right ventricle is normal in size and function. James Maynard 09/14/2018, 2:37 PM Ordering Physician: Annika Bower Performed By: Jenifer Kruse
--- NOTE | 2018-09-14 17:37 | CON.CARD ---
Cardiology Consult (text) - Consultation Consultation Note: cc: falls hpi: 87 m hx anxiety, hld here with falls. Pt has had balance issues and falls for several years but reports that past week his balance has been worse and he has had several falls. No prodrome sxs. No loc. No cp sob palps dizzy pnd orthopnea le edema. pmh: per hpi psh: turp ros: per hpi; msk arthritis joint pains; all others normal social: ex tobacco fam: no premature cad, scd meds Ambulatory Orders Aspirin [ASA -] 81 mg PO DAILY 08/14/14 Diazepam [Valium] 5 mg PO BID #20 tablet 08/17/14 Meloxicam 15 mg PO DAILY 09/13/18 Current Medications Generic Name Dose Route Start Last Admin Trade Name Sera PRN Reason Stop Dose Admin Aspirin 81 mg 09/14/18 10:00 09/14/18 10:49 Asa - PO 81 mg DAILY [facility] Administration Enoxaparin Sodium 40 mg 09/13/18 18:30 09/14/18 10:49 Lovenox - SQ 40 mg DAILY [facility] Administration Non-Formulary Medication 15 mg 09/14/18 10:00 Meloxicam [Meloxicam] PO DAILY [facility] Tamsulosin HCl 0.4 mg 09/14/18 12:02 09/14/18 13:18 Flomax - PO 0.4 mg DAILY@0830 [facility] Administration Thiamine HCl 250 mg 09/14/18 14:00 09/14/18 13:30 Vitamin B1 Injection - IVPB 09/17/18 13:59 Not Given TID [facility] pe: Vital Signs Period Temp Pulse Resp BP Sys/Huber Pulse Ox Last 24 Hr 97.6 F-98.9 F 57-84 14-22 120-148/66-89 96-98 nad, no jvd rrr s1s2 no mrg cta b/l, nl eff aaox3 no le e/c/c abd nt nd pos bs pos dp/pt no carotid bruits no diaphoresis, jaundice Laboratory Last Values WBC 5.7 K/mm3 (4.0-10.0) 09/14/18 06:55 RBC 3.89 M/mm3 (4.00-5.60) L 09/14/18 06:55 Hgb 12.2 GM/dL (11.7-16.9) 09/14/18 06:55 Hct 35.3 % (35.4-49) L 09/14/18 06:55 MCV 90.9 fl (80-96) 09/14/18 06:55 MCH 31.3 pg (25.7-33.7) 09/14/18 06:55 MCHC 34.5 g/dl (32.0-35.9) 09/14/18 06:55 RDW 13.0 % (11.9-15.9) 09/14/18 06:55 Plt Count 211 K/MM3 (134-434) 09/14/18 06:55 MPV 7.4 fl (7.5-11.1) L 09/14/18 06:55 Absolute Neuts (auto) 2.9 K/mm3 (1.5-8.0) 09/13/18 13:46 Neutrophils % 62.1 % (42.8-82.8) 09/13/18 13:46 Lymphocytes % 24.9 % (8-40) 09/13/18 13:46 Monocytes % 9.0 % (3.8-10.2) 09/13/18 13:46 Eosinophils % 3.4 % (0-4.5) 09/13/18 13:46 Basophils % 0.6 % (0-2.0) 09/13/18 13:46 Nucleated RBC % 0 % (0-0) 09/13/18 13:46 Sodium 136 mmol/L (136-145) 09/14/18 06:55 Potassium 4.1 mmol/L (3.5-5.1) 09/14/18 06:55 Chloride 103 mmol/L (98-107) 09/14/18 06:55 Carbon Dioxide 27 mmol/L (21-32) 09/14/18 06:55 Anion Gap 6 MMOL/L (8-16) L 09/14/18 06:55 BUN 15.0 mg/dL (7-18) 09/14/18 06:55 Creatinine 1.0 mg/dL (0.55-1.3) 09/14/18 06:55 Est GFR (CKD-EPI)AfAm 78.08 09/14/18 06:55 Est GFR (CKD-EPI)NonAf 67.37 09/14/18 06:55 Random Glucose 76 mg/dL (74-106) 09/14/18 06:55 Serum Osmolality 264 mosm/kg (278-305) L 09/13/18 13:46 Calcium 8.5 mg/dL (8.5-10.1) 09/14/18 06:55 Magnesium 2.5 mg/dL (1.8-2.4) H 09/14/18 06:55 Total Bilirubin 0.5 mg/dL (0.2-1) 09/13/18 13:46 AST 9 U/L (15-37) L 09/13/18 13:46 ALT 13 U/L (13-61) 09/13/18 13:46 Alkaline Phosphatase 55 U/L (45-117) 09/13/18 13:46 Troponin I < 0.02 ng/ml (0.00-0.05) 09/13/18 13:46 Total Protein 5.8 g/dl (6.4-8.2) L 09/13/18 13:46 Albumin 3.4 g/dl (3.4-5.0) 09/13/18 13:46 TSH 3.16 uIU/ml (0.358-3.74) D 09/14/18 06:55 Urine Color Yellow 09/14/18 04:30 Urine Appearance Clear 09/14/18 04:30 Urine pH 7.0 (5.0-8.0) 09/14/18 04:30 Ur Specific Farrell 1.015 (1.010-1.035) 09/14/18 04:30 Urine Protein Negative (NEGATIVE) 09/14/18 04:30 Urine Glucose (UA) Negative (NEGATIVE) 09/14/18 04:30 Urine Ketones Negative (NEGATIVE) 09/14/18 04:30 Urine Blood Negative (NEGATIVE) 09/14/18 04:30 Urine Nitrite Negative (NEGATIVE) 09/14/18 04:30 Urine Bilirubin Negative (NEGATIVE) 09/14/18 04:30 Urine Urobilinogen 0.2 mg/dL (0.2-1.0) 09/14/18 04:30 Ur Leukocyte Esterase Negative (NEGATIVE) 09/14/18 04:30 Urine Osmolality 138 mosm/kg (300-900) L 09/13/18 15:20 Ur Random Sodium 25 MMOL/L (40-220) L 09/13/18 15:07 Ur Random Chloride 18 MMOL/L (110-250) L 09/13/18 15:20 Opiates Screen Negative ng/ml (SKRPOL=087) 09/14/18 04:30 Methadone Screen Negative ng/ml (LOYYQN=645) 09/14/18 04:30 Barbiturate Screen Negative ng/ml (LMFUVE=466) 09/14/18 04:30 Phencyclidine Screen Negative ng/ml (CUTOFF=25) 09/14/18 04:30 Ur Amphetamines Screen Negative ng/ml (OQPZRR=715) 09/14/18 04:30 MDMA (Ecstasy) Screen Negative ng/ml (HPAKQZ=969) 09/14/18 04:30 Benzodiazepines Screen Positive ng/ml (XHSEAV=023) A* 09/14/18 04:30 Cocaine Screen Negative ng/ml (JWPRIQ=855) 09/14/18 04:30 U Marijuana (THC) Screen Negative ng/ml (CUTOFF=50) 09/14/18 04:30 stress echo 07/2012: nl lvef, no ischemia echo 11/2013: nl lv, nl rv, nl rvsp, mild ao root dil, mod mr echo 09/2018: nl lv/rv, mild mr/tr ct chest: r lung mass (biopsied in past with benign findings, monitor per pulm) , no chf ecg: sr, nl intervals, no ischemic changes a/p: 87 m hx anxiety, hld here with falls. falls: -seem related to balance, no cardiac etiology, no syncope -echo benign. no signs acs or chf. -neuro, pt eval hld: -stable, diet control mr: -mild on current echo cardiac mayes stable
[2018-09-14] MEDS ORDERED: ACETAMINOPHEN 325 MG TABLET (FP) PO PRN (18:26)
--- NOTE | 2018-09-14 19:08 | CONSULT ---
Consult - text type - Consultation Consultation Note: NEUROLOGY CONSULT GREATLY APPRECIATED: Events reviewed and discussed with nursing staff. Daughter Azra at bedside. This 87 yo RH man lives alone and receives assistance with ADL's from family including cooking, cleaning, shopping etc. Ambulates intermittently with cane over past 3 years. PMHx includes BPH s/p TURP, DVT, nicotine dependence, HLD, "neck arthritis," urinary retention and recurrent falls. Meds: ASA 81, meloxicam, and diazepam 5 mg BID. Admitted after recent fall as patient describes he feels "his legs give out" and family concerns of patient's safety at home. Denies LOC. Head CT (reviewed): Mild atrophy with ex vacuo ventricular dilation. ? 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 Grade 1 retrolithesis C4/C5; Grade 1 anterolithesis C7/T1. Calcified common carotids. CT of LS spine 03/11/16: Grade 1 anteriolithesis L4/L5. [place] stensosi L4 /L5 and facet hypertrophy L5/S1. Na 128-> 136. TSH 1.66 JOSE: Thin and Kyphotic. Cor regular. No bruit. No evidence of head trauma. Restricted ROM of neck in all directions. Neg SLR. NEURO: Awake, alert, oriented "[facility]" "August or September" 2018. TRUMP-> PMURT. 2/3 recall @ 3 min. + glabella CNII-CNXII: EOM's full. Full gonzáles. No facial. Motor: Min R drift. Strength normal. Decreased ALEXIS's R. Min cogwheeling R > L. Reflexes brisk in arms, but reduced at KJs and absent AJs. Toes silent. Coordination: No FTN dystaxia. Romberg + Sensation: Decreased vibration to shins B/L. Romberg + Gait: Flexed, sl shuffle. Unsteady. Impression: Mild B/L Cerebral Dysfunction (DECK BU[employer]DER microvascular +/- OMS, chronic)/ mild extrpyramidal findings Recurrent falls, ataxia and urinary retention (c/w Cervical Myelopathy vs. 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 [facility]/ neuro f/u as out patient. Thank you very much, Luis Carr MD
[2018-09-15] MEDS: THIAMINE HCL 200 MG/2 ML VIAL IVPB SCH (05:57)
[2018-09-15 07:59] LABS: ALBUMIN 4.2 g/dl (3.4-5.0); BILIRUBIN,TOTAL 0.6 mg/dL (0.2-1); BLOOD UREA NITROGEN 10.3 mg/dL (7-18); CALCIUM 9.2 mg/dL (8.5-10.1); CREATININE 1.1 mg/dL (0.55-1.3); POTASSIUM 4.1 mmol/L (3.5-5.1); TOT PROT 7.1 g/dl (6.4-8.2)
[2018-09-15] MEDS ORDERED: SODIUM CHLORIDE 1 GM TABLET PO SCH (10:00)
[2018-09-15] MEDS: TAMSULOSIN HCL 0.4 MG CAP PO SCH (10:52)
[2018-09-15] MEDS: ASPIRIN 81 MG CHEWABLE TABLETS PO SCH (10:53)
[2018-09-15] MEDS: ENOXAPARIN NA (PORCINE) 40 MG/0.4 ML DISP.SYRIN SQ SCH (10:53)
[2018-09-15 11:09] VITALS: BP 158/82; PULSE 83; TEMP 98.4
[2018-09-15] MEDS ORDERED: CYANOCOBALAMIN (VITAMIN B-12) 1000 MCG/1 ML VIAL IM SCH (11:45)
--- NOTE | 2018-09-15 12:28 | PN ---
Progress Note, Physician Chief Complaint: "i want to go home!" - Current Medication List Current Medications: Active Medications Acetaminophen (Tylenol -) 650 mg PO Q4H PRN PRN Reason: PAIN Aspirin (Asa -) 81 mg PO DAILY [facility] Last Admin: 09/15/18 10:53 Dose: 81 mg Cyanocobalamin (Vitamin B12 Injection -) 1,000 mcg IM DAILY [facility] Enoxaparin Sodium (Lovenox -) 40 mg SQ DAILY [facility] Last Admin: 09/15/18 10:53 Dose: 40 mg Sodium Chloride (Sodium Chloride Tablet -) 1 gm PO DAILY [facility] Last Admin: 09/15/18 10:53 Dose: 1 gm Tamsulosin HCl (Flomax -) 0.4 mg PO DAILY@0830 [facility] Last Admin: 09/15/18 10:52 Dose: 0.4 mg Thiamine HCl (Vitamin B1 Injection -) 250 mg IVPB TID [facility] Stop: 09/17/18 13:59 Last Admin: 09/15/18 05:57 Dose: Not Given - Objective Vital Signs: Vital Signs Temperature 98.4 F 09/15/18 11:00 Pulse Rate 83 09/15/18 11:00 Respiratory Rate 20 09/15/18 11:00 Blood Pressure 158/82 09/15/18 11:00 O2 Sat by Pulse Oximetry (%) 97 09/14/18 21:00 Constitutional: Yes: Anxious Eyes: Yes: EOM Intact HENT: Yes: Normocephalic Neck: Yes: Trachea Midline Cardiovascular: Yes: Regular Rate and Rhythm Respiratory: Yes: CTA Bilaterally Gastrointestinal: Yes: Normal Bowel Sounds ...Rectal Exam: Yes: Deferred Genitourinary: Yes: WNL Breast(s): Yes: WNL Musculoskeletal: Yes: Joint Swelling, Muscle Pain, Muscle Weakness Extremities: Yes: WNL Edema: No Integumentary: Yes: WNL Neurological: Yes: Alert, Oriented Labs: CBC, BMP 09/14/18 06:55 09/15/18 06:15 Problem List - Problems (1) Hyponatremia Code(s): E87.1 - HYPO-OSMOLALITY AND HYPONATREMIA (2) Multiple falls Code(s): R29.6 - REPEATED FALLS (3) Anxiety Code(s): F41.9 - ANXIETY DISORDER, UNSPECIFIED (4) Arrhythmia Code(s): I49.9 - CARDIAC ARRHYTHMIA, UNSPECIFIED (5) Atypical chest pain Code(s): R07.89 - OTHER CHEST PAIN (6) Depression Code(s): F32.9 - MAJOR DEPRESSIVE DISORDER, SINGLE EPISODE, UNSPECIFIED (7) Palpitation Code(s): R00.2 - PALPITATIONS (8) Partial small bowel obstruction Code(s): K56.69 - OTHER INTESTINAL OBSTRUCTION * DO NOT USE * Assessment/Plan Current Active Problems Hyponatremia (Acute) Lung mass (Acute) Multiple falls (Acute) thyroiditis slime Abnormal Lab Results 09/14/18 09/15/18 09/15/18 06:55 06:15 06:17 Sodium 135 L Anion Gap 6 L 7 L Magnesium 2.5 H TSH 4.41 H D Laboratory Results - last 24 hr 09/14/18 09/15/18 09/15/18 06:55 06:15 06:17 Sodium 136 135 L Potassium 4.1 4.1 Chloride 103 101 Carbon Dioxide 27 27 Anion Gap 6 L 7 L BUN 15.0 10.3 Creatinine 1.0 1.1 Est GFR (CKD-EPI)AfAm 78.08 69.59 Est GFR (CKD-EPI)NonAf 67.37 60.04 Random Glucose 76 79 Calcium 8.5 9.2 Magnesium 2.5 H Total Bilirubin 0.6 AST 15 ALT 16 Alkaline Phosphatase 61 Total Protein 7.1 Albumin 4.2 Vitamin B12 280 315 TSH 3.16 D 4.41 H D RPR Titer 09/15/18 06:17 Sodium Potassium Chloride Carbon Dioxide Anion Gap BUN Creatinine Est GFR (CKD-EPI)AfAm Est GFR (CKD-EPI)NonAf Random Glucose Calcium Magnesium Total Bilirubin AST ALT Alkaline Phosphatase Total Protein Albumin Vitamin B12 TSH RPR Titer Nonreactive plan: mr brain dc home follow up with psych follow with neurology outpatient daughter aware of his anxiety and unwillingness stay for therapy or mri
[2018-09-15] MEDS ORDERED: diazePAM 5 MG TABLET PO SCH (12:45)
--- NOTE | 2018-09-15 12:45 | PN ---
Progress Note, Physician History of Present Illness: Pt seen and examined at bedside. He is insisting on going home. He denies dizziness. - Current Medication List Current Medications: Active Medications Acetaminophen (Tylenol -) 650 mg PO Q4H PRN PRN Reason: PAIN Aspirin (Asa -) 81 mg PO DAILY [facility] Last Admin: 09/15/18 10:53 Dose: 81 mg Cyanocobalamin (Vitamin B12 Injection -) 1,000 mcg IM DAILY [facility] Diazepam (Valium -) 5 mg PO BID [facility] Enoxaparin Sodium (Lovenox -) 40 mg SQ DAILY [facility] Last Admin: 09/15/18 10:53 Dose: 40 mg Sodium Chloride (Sodium Chloride Tablet -) 1 gm PO DAILY [facility] Last Admin: 09/15/18 10:53 Dose: 1 gm Tamsulosin HCl (Flomax -) 0.4 mg PO DAILY@0830 [facility] Last Admin: 09/15/18 10:52 Dose: 0.4 mg Thiamine HCl (Vitamin B1 Injection -) 250 mg IVPB TID [facility] Stop: 09/17/18 13:59 Last Admin: 09/15/18 05:57 Dose: Not Given - Objective Vital Signs: Vital Signs Temperature 98.4 F 09/15/18 11:00 Pulse Rate 83 09/15/18 11:00 Respiratory Rate 20 09/15/18 11:00 Blood Pressure 158/82 09/15/18 11:00 O2 Sat by Pulse Oximetry (%) 97 09/14/18 21:00 Constitutional: Yes: Calm Eyes: Yes: Conjunctiva Clear Neck: Yes: Supple Cardiovascular: Yes: S1, S2 Respiratory: Yes: CTA Bilaterally Gastrointestinal: Yes: Soft Genitourinary: Yes: WNL Musculoskeletal: Yes: WNL Edema: No Integumentary: Yes: WNL Neurological: Yes: Oriented Psychiatric: Yes: Oriented Labs: CBC, BMP 09/14/18 06:55 09/15/18 06:15 Problem List - Problems (1) Hyponatremia Code(s): E87.1 - HYPO-OSMOLALITY AND HYPONATREMIA (2) Multiple falls Code(s): R29.6 - REPEATED FALLS (3) Anxiety Code(s): F41.9 - ANXIETY DISORDER, UNSPECIFIED Assessment/Plan Current Medications Generic Name Dose Route Start Last Admin Trade Name Freq PRN Reason Stop Dose Admin Acetaminophen 650 mg 09/14/18 18:26 Tylenol - PO Q4H PRN PAIN Aspirin 81 mg 09/14/18 10:00 09/15/18 10:53 Asa - PO 81 mg DAILY [facility] Administration Cyanocobalamin 1,000 mcg 09/15/18 11:45 Vitamin B12 Injection - IM DAILY [facility] Diazepam 5 mg 09/15/18 12:45 Valium - PO BID [facility] Enoxaparin Sodium 40 mg 09/13/18 18:30 09/15/18 10:53 Lovenox - SQ 40 mg DAILY [facility] Administration Sodium Chloride 1 gm 09/15/18 10:00 09/15/18 10:53 Sodium Chloride Tablet - PO 1 gm DAILY [facility] Administration Tamsulosin HCl 0.4 mg 09/14/18 12:02 09/15/18 10:52 Flomax - PO 0.4 mg DAILY@0830 [facility] Administration Thiamine HCl 250 mg 09/14/18 14:00 09/15/18 05:57 Vitamin B1 Injection - IVPB 09/17/18 13:59 Not Given TID [facility] Impression 1. hyponatremia 2. vertigo/dizziness 3. unsteady gait 4. falls 5. anxiety 6. bph 7. lung mass 8. arthritis 9. weight loss Plan - encourage po intake - start salt tabs for now - will need to monitor sodium - discussed importance of diet and po intake Dr Campbell
== END 2018-09-15 13:25 | disposition left against medical advice (07) | DRG 641 ==
LOC: JER 12:10 → JERBED 16:53 → J6S 18:58
PROVIDERS: ADMIT Internal Medicine Endocrinology, Diabetes & Metabolism; ATTEND Family Medicine
DX: E87.1 Hypo-osmolality and hyponatremia (principal); R42 Dizziness and giddiness; R63.4 Abnormal weight loss; F41.9 Anxiety disorder, unspecified; F17.210 Nicotine dependence, cigarettes, uncomplicated
CPT/HCPCS: 36415; 70450-TC; 71045-TC-FY; 71260-TC; 72125-TC; 80048; 80053; 80307; 81003; 82378; 82436; 82533; 82607; 83735; 83930; 83935; 84300; 84443; 84484; 85025; 85027; 86593; 87086; 93005; 93010; 93306-TC; 97116-GP; 97161-GP; 99284-25; J7030

== ENCOUNTER 2020-11-01 11:03 | Emergency (ER) | payer OTHER, BC ==
[2020-11-01 11:50] VITALS: BP 131/70; BMI 18.6
[2020-11-01 12:04] VITALS: PULSE 77; TEMP 97.9
== END 2020-11-01 14:20 | disposition home or self-care (01) ==
LOC: JER 11:03
DX: Z04.3 Encounter for examination and observation following other accident (principal); W19.XXXA Unspecified fall, initial encounter; Y92.9 Unspecified place or not applicable
CPT/HCPCS: 70450-TC; 73030-TC-RT-FY; 73070-TC-RT-FY; 73110-TC-RT-FY; 73130-TC-RT-FY; 82962; 93005; 93010; 99283-25